=== PATIENT | female | born 1955 | race Caucasian/White ===

== ENCOUNTER 2017-01-24 09:01 | Emergency (ER) | payer MEDICARE, OTHER ==
[~2017-01-24] VITALS: Ht 154.9 cm; Wt 74.8 kg
[2017-01-24 09:09] VITALS: BP 190/99
[2017-01-24] MEDS ORDERED: KETOROLAC TROMETHAMINE INJ 30 MG/ML VIAL ONE (09:29)
[2017-01-24] MEDS ORDERED: KETOROLAC TROMETHAMINE INJ 30 MG/ML VIAL IM ONE (09:30)
== END 2017-01-24 10:16 | disposition home or self-care (01) ==
LOC: ER 09:03
DX: S46.912A Strain of unspecified muscle, fascia and tendon at shoulder and upper arm level, left arm, initial encounter (principal); X58.XXXA Exposure to other specified factors, initial encounter; Y93.89 Activity, other specified; Y92.89 Other specified places as the place of occurrence of the external cause; Y99.8 Other external cause status
CPT/HCPCS: 73030; 96372; 99284; A4606; J1885; Z7610

== ENCOUNTER 2025-02-12 07:54 | Emergency (ER) | payer MEDICARE, OTHER ==
[~2025-02-12] VITALS: Ht 154.9 cm; Wt 72.6 kg
[2025-02-12] MEDS ORDERED: LORAZEPAM 0.5 MG TABLET ONE (08:13)
[2025-02-12] MEDS: LORAZEPAM 0.5 MG TABLET PO ONE (08:23)
[2025-02-12 08:25] LABS: PLATELET COUNT (AUTO) 278 K/uL (150-450); RED BLOOD CELL COUNT(AUTO) 5.01 MIL/uL (4.0-5.2); RED CELL DISTRIBUTION WIDTH 13.4 % (11.5-15.0); WHITE BLOOD COUNT (AUTO) 9.9 K/uL (4.3-11.0)
[2025-02-12 08:35] LABS: CALCIUM, SERUM 9.4 mg/dL (8.5-10.1); CREATININE 1.1 mg/dL (0.6-1.3); SODIUM SERUM 141 mmol/L (136-145); UREA NITROGEN, BLOOD 15 mg/dL (7-18)
[2025-02-12 10:21] VITALS: BP 144/85; TEMP 98.1; O2SAT 98
== END 2025-02-12 10:20 | disposition home or self-care (01) ==
LOC: ER 08:06
DX: F41.1 Generalized anxiety disorder (principal); I10 Essential (primary) hypertension; E78.5 Hyperlipidemia, unspecified; M19.90 Unspecified osteoarthritis, unspecified site; Z86.73 Personal history of transient ischemic attack (TIA), and cerebral infarction without residual deficits
CPT/HCPCS: 36415; 71045-TC; 80048-TC; 84484-TC; 85025-TC

== ENCOUNTER 2025-05-26 16:39 | Inpatient (IN) | payer MEDICARE, OTHER ==
[~2025-05-26] VITALS: Ht 154.9 cm; Wt 72.6 kg
[2025-05-26 17:33] LABS: PLATELET COUNT (AUTO) 303 K/uL (150-450); RED BLOOD CELL COUNT(AUTO) 4.62 MIL/uL (4.0-5.2); RED CELL DISTRIBUTION WIDTH 12.4 % (11.5-15.0); WHITE BLOOD COUNT (AUTO) 9.8 K/uL (4.3-11.0)
[2025-05-26 17:43] LABS: CALCIUM, SERUM 8.5 mg/dL (8.5-10.1); CREATININE 0.9 mg/dL (0.6-1.3); SODIUM SERUM 141.0 mmol/L (136-145); UREA NITROGEN, BLOOD 18.0 mg/dL (7-18)
[2025-05-26 17:47] LABS: ASPARTATE AMINOTRANSFERASE 33.0 U/L (15-37); TOTAL PROTEIN, SERUM 7.3 g/dL (6.4-8.2)
[2025-05-26 17:50] LABS: INR 1.01 (0.91-1.10)
[2025-05-26] MEDS ORDERED: MAGNESIUM HYDROXIDE 30 ML UDC PO PRN (19:00)
[2025-05-26] MEDS ORDERED: ONDANSETRON HCL/PF 4 MG/2 ML VIAL IVP PRN (19:00)
[2025-05-26] MEDS ORDERED: MAG HYDROX/AL HYDROX/SIMETH 30 ML UDC PO PRN (19:00)
[2025-05-26] MEDS ORDERED: ACETAMINOPHEN 325 MG TABLET PO PRN (19:00)
[2025-05-26] MEDS ORDERED: Z GUARD REMEDY 4 OZ OINT TP PRN (19:00)
[2025-05-26 20:00] VITALS: BP 129/88; TEMP 97.6; O2SAT 97
[2025-05-26] MEDS: PANTOPRAZOLE 40 MG VIAL IV SCH (21:03)
[2025-05-27 07:32] LABS: PLATELET COUNT (AUTO) 306 K/uL (150-450); RED BLOOD CELL COUNT(AUTO) 4.05 MIL/uL (4.0-5.2); RED CELL DISTRIBUTION WIDTH 12.4 % (11.5-15.0); WHITE BLOOD COUNT (AUTO) 12.8 K/uL (4.3-11.0)
[2025-05-27 07:50] LABS: CALCIUM, SERUM 8.8 mg/dL (8.5-10.1); CREATININE 1.1 mg/dL (0.6-1.3); PHOSPHORUS 4.5 mg/dL (2.5-4.9); SODIUM SERUM 143.0 mmol/L (136-145); UREA NITROGEN, BLOOD 25.0 mg/dL (7-18)
[2025-05-27 08:00] VITALS: BP 131/92; TEMP 98.4; O2SAT 98
[2025-05-27] MEDS: HYDROCORTISONE CR 30 GM TUBE RC SCH (09:29)
[2025-05-27] MEDS ORDERED: PANT40TA49 PO (10:01)
[2025-05-27] MEDS ORDERED: APIX5TAB PO (10:01)
[2025-05-27] MEDS ORDERED: AMLO-213 PO (10:01)
[2025-05-27] MEDS ORDERED: OLME20TA23 PO (10:01)
[2025-05-27] MEDS ORDERED: EZET10TA16 PO (10:01)
[2025-05-27] MEDS ORDERED: ZOLP5TAB2 PO (10:01)
[2025-05-27] MEDS ORDERED: LORA-258 PO (10:01)
[2025-05-27] MEDS ORDERED: HYDR25TA4 PO (10:01)
[2025-05-27] MEDS ORDERED: GABA-532 PO (10:01)
[2025-05-27] MEDS ORDERED: ROSU20TA2 PO (10:01)
[2025-05-27] MEDS ORDERED: ERGO500093 PO (10:01)
[2025-05-27] MEDS ORDERED: ICOS1CAP PO (10:01)
[2025-05-27 16:00] VITALS: BP 113/79; TEMP 97.9; O2SAT 97
[2025-05-27 20:00] VITALS: BP 125/92; TEMP 98.1; O2SAT 98
[2025-05-27] MEDS ORDERED: ZOLPIDEM TARTRATE 5 MG TABLET PO PRN (21:30)
[2025-05-27] MEDS ORDERED: LORAZEPAM 0.5 MG TABLET PO PRN (21:30)
[2025-05-27] MEDS: GABAPENTIN 100 MG CAPSULE PO SCH (21:45)
[2025-05-27] MEDS: ATORVASTATIN 10 MG TABLET PO SCH (21:45)
[2025-05-27] MEDS: PANTOPRAZOLE 40 MG TABLET.DR PO SCH (21:45)
[2025-05-27] MEDS: AMLODIPINE BESYLATE 10 MG TABLET PO SCH (21:46)
[2025-05-28 06:29] LABS: PLATELET COUNT (AUTO) 219 K/uL (150-450); RED BLOOD CELL COUNT(AUTO) 3.45 MIL/uL (4.0-5.2); RED CELL DISTRIBUTION WIDTH 12.5 % (11.5-15.0); WHITE BLOOD COUNT (AUTO) 7.3 K/uL (4.3-11.0)
[2025-05-28 07:00] VITALS: BP 143/90; TEMP 98.2; O2SAT 97
[2025-05-28] MEDS: EZETIMIBE 10 MG TABLET PO SCH (08:52)
[2025-05-28] MEDS: LOSARTAN POTASSIUM 25 MG TABLET PO SCH (08:52)
[2025-05-28 08:54] VITALS: BP 143/90
[2025-05-28] MEDS: HYDROCHLOROTHIAZIDE 25 MG TABLET PO SCH (08:54)
[2025-05-28] MEDS ORDERED: PANTOPRAZOLE 40 MG TABLET.DR PO SCH (09:00)
[2025-05-28] MEDS ORDERED: HYDR25SU13 RC (09:41)
== END 2025-05-28 12:00 | disposition home or self-care (01) | DRG 921 ==
LOC: ER 16:47 → MED 18:35
PROVIDERS: ADMIT Nurse Practitioner Acute Care; ATTEND Nurse Practitioner Acute Care
DX: K91.840 Postprocedural hemorrhage of a digestive system organ or structure following a digestive system procedure (principal); E66.9 Obesity, unspecified; Z79.01 Long term (current) use of anticoagulants; I10 Essential (primary) hypertension; E78.5 Hyperlipidemia, unspecified; K64.8 Other hemorrhoids; Z86.73 Personal history of transient ischemic attack (TIA), and cerebral infarction without residual deficits; Z68.30 Body mass index [BMI] 30.0-30.9, adult; R91.8 Other nonspecific abnormal finding of lung field; I48.91 Unspecified atrial fibrillation; Y83.8 Other surgical procedures as the cause of abnormal reaction of the patient, or of later complication, without mention of misadventure at the time of the procedure; Y81.8 Miscellaneous general- and plastic-surgery devices associated with adverse incidents, not elsewhere classified; Y92.009 Unspecified place in unspecified non-institutional (private) residence as the place of occurrence of the external cause
CPT/HCPCS: 36415; 80048-TC; 80076-TC; 83735-TC; 84100-TC; 84443-TC; 85025-TC; 85027-TC; 85730-TC; 86850-TC; G0378; J2470